=== PATIENT | male | born 1995 | race Caucasian/White ===

== ENCOUNTER 2017-09-04 13:05 | Emergency (ER) | payer SELFPAY ==
[2017-09-04 13:16] VITALS: BP 136/53
--- NOTE | 2017-09-04 13:33 | UC ---
Complaint Male HPI - HPI Summary HPI Summary: pt states last week he had some "stinging with urination". he drank cranberry juice and it resolved. today, he has recurrent pain and some red blood in his urine. he denies any injury, f/v/d, hx std, injury/testicle pain. he has had the same female partner x 2 years. he denies risk/concern for std's. - History of Current Complaint Stated Complaint: URINARY Time Seen by Provider: 09/04/17 13:13 Hx Obtained From: Patient Onset/Duration: Gradual Onset Pain Intensity: 4 Aggravating Factor(s): Nothing Associated Signs And Symptoms: Positive: Hematuria, Dysuria. Negative: Back Pain, Fever, Rectal Pain, Penile Swelling, Penile Discharge - Risk Factors Testicular Torsion: Negative - Allergies/Home Medications Allergies/Adverse Reactions: Allergies Allergy/AdvReac Type Severity Reaction Status Date / Time No Known Allergies Allergy Verified 09/04/17 13:17 PMH/Surg Hx/FS Hx/Imm Hx Previously Healthy: Yes - Surgical History Surgical History: None - Family History Known Family History: Positive: None - Social History Occupation: Employed Full-time Lives: With Family Alcohol Use: None Substance Use Type: None Smoking Status (MU): Never Smoked Tobacco Household Exposure Type: Cigarettes - Immunization History Vaccination Up to Date: Yes Review of Systems Constitutional: Negative Skin: Negative Eyes: Negative ENT: Negative Respiratory: Negative Cardiovascular: Negative Gastrointestinal: Negative Genitourinary: Dysuria, Hematuria, Frequency, Urgency Motor: Negative Neurovascular: Negative Musculoskeletal: Negative Neurological: Negative Psychological: Negative Is Patient Immunocompromised?: No All Other Systems Reviewed And Are Negative: Yes Physical Exam Triage Information Reviewed: Yes Appearance: Well-Appearing Vital Signs: Initial Vital Signs Temp 99.3 F 09/04/17 13:13 Pulse 115 09/04/17 13:13 Resp 15 09/04/17 13:13 BP 136/53 09/04/17 13:13 Pulse Ox 100 09/04/17 13:13 Vital Signs Reviewed: Yes Eyes: Positive: Conjunctiva Clear ENT: Positive: Pharynx normal, TMs normal. Negative: Nasal congestion, Nasal drainage Neck: Positive: Supple, Nontender, No Lymphadenopathy Respiratory: Positive: Lungs clear, Normal breath sounds Cardiovascular: Positive: RRR, No Murmur. Negative: Tachycardia Abdomen Description: Positive: Nontender, No Organomegaly, Soft. Negative: CVA Tenderness (R), CVA Tenderness (L), Distended, Guarding Bowel Sounds: Positive: Present Male Genital Exam: Positive: Normal Genitalia, No Hernia. Negative: Bleeding, Epididymal Tenderness, Erythema, Lesions, Testicular Tenderness (R), Testicular Tenderness (L), Urethral Discharge Musculoskeletal: Positive: ROM Intact Neurological: Positive: Alert Psychological: Positive: Age Appropriate Behavior Skin Exam: Normal Diagnostics - Laboratory Diagnostic Studies Completed/Ordered: U/A= 3+ BLOOD with culture pending. Urine GC/Chlamydia = pending. pt declined HIV/syphilis testing. Complaint Male Course/Dx - Course Course Of Treatment: non toxic. no acute abdomen. no flank pain to suggest renal colic. no concern for testicular pathology. hx suggests uti thus will tx presumptively with culture pending. case d/w Dr Carmen, we agreed on tx plan. pt advised go to ER for changes or worsening. need for close f/u and rcheck was stressed. list of local providers and physician referral liason number given as well to assist with f/u. - Differential Dx/Diagnosis Provider Diagnoses: dysuria. hematuria. Discharge - Sign-Out/Discharge Documenting (check all that apply): Patient Departure - Discharge Plan Condition: Stable Disposition: HOME Prescriptions: Cephalexin CAP* [Keflex CAP*] 500 mg PO TID #21 cap Patient Education Materials: Hematuria (ED), Dysuria (ED) Referrals: [facility]FERR[facility] [Outside] - 7 Days No Primary Care Phys,NOPCP [Primary Care Provider] - Additional Instructions: FOLLOW UP WITH A LOCAL PROVIDER IN 7 DAYS FOR A RECHECK. LIST GIVEN ALONG WITH [facility] REFERR[facility] WHOM YOU SHOULD CALL WEDNESDAY AM. THEY WILL ASSIST YOU WITH A FOLLOW UP APPOINTMENT WELL. - Billing Disposition and Condition Condition: STABLE Disposition: Home
== END 2017-09-04 14:04 | disposition home or self-care (01) ==
LOC: UCCORT 13:05
DX: R30.0 Dysuria (principal); R31.9 Hematuria, unspecified
CPT/HCPCS: 81003; 87086; 87491; 87591; 99212; G0463

== ENCOUNTER 2017-09-17 16:30 | Emergency (ER) | payer SELFPAY ==
[2017-09-17 17:15] VITALS: BP 121/50
--- NOTE | 2017-09-17 17:41 | UC ---
Complaint Male HPI - HPI Summary HPI Summary: Pt presents with c/o of sudden onset of gamaliel, gross, hematuria, pelvic pain, occasional penile discharge that began 1 week ago. Pt attempted to make appointment with PCP and was not able to get an appointment as recommended at last UC visit. Pt denies STD risk, is sexually active but denies risk for STD' s. STate today he had gamaliel gross hematuria and large blood clots in urine. Pt denies recent injury, trauma or vigorous physical activity. Pt reports that he took cephalexin as directed from last visit and stated hematuria improved. - History of Current Complaint Chief Complaint: UCGU Stated Complaint: RECHECK - URINARY Time Seen by Provider: 09/17/17 17:18 Hx Obtained From: Patient Onset/Duration: Sudden Onset, Lasting Days - 10 Timing: Intermittent Severity Initially: Mild Severity Currently: Moderate Pain Intensity: 0 Location: Suprapubic Character: Sharp, Burning, Colicy Aggravating Factor(s): Voiding Alleviating Factor(s): Nothing Associated Signs And Symptoms: Positive: Hematuria, Penile Discharge - Risk Factors Testicular Torsion: Negative - Allergies/Home Medications Allergies/Adverse Reactions: Allergies Allergy/AdvReac Type Severity Reaction Status Date / Time No Known Allergies Allergy Verified 09/17/17 17:15 PMH/Surg Hx/FS Hx/Imm Hx Previously Healthy: Yes - Surgical History Surgical History: None - Family History Known Family History: Positive: Cardiac Disease - Social History Occupation: Employed Part-time Alcohol Use: None Substance Use Type: None Smoking Status (MU): Never Smoked Tobacco Have You Smoked in the Last Year: No Household Exposure Type: Cigarettes - Immunization History Vaccination Up to Date: Yes Review of Systems Constitutional: Negative Skin: Negative Eyes: Negative ENT: Negative Respiratory: Negative Cardiovascular: Negative Gastrointestinal: Abdominal Pain Genitourinary: Dysuria, Hematuria, Vaginal/Penile Discharge Motor: Negative Neurovascular: Negative Musculoskeletal: Negative Neurological: Negative Psychological: Negative Is Patient Immunocompromised?: No All Other Systems Reviewed And Are Negative: Yes Physical Exam Triage Information Reviewed: Yes Appearance: Well-Appearing Vital Signs: Initial Vital Signs Temp 99.4 F 09/17/17 17:09 Pulse 92 09/17/17 17:09 Resp 16 09/17/17 17:09 BP 121/50 09/17/17 17:09 Pulse Ox 99 09/17/17 17:09 Vital Signs Reviewed: Yes Eye Exam: Normal ENT Exam: Normal Dental Exam: Normal Neck exam: Normal Respiratory Exam: Normal Cardiovascular Exam: Normal Abdominal Exam: Normal Abdomen Description: Positive: Nontender, No Organomegaly, Soft Musculoskeletal Exam: Normal Neurological Exam: Normal Psychological Exam: Normal Skin Exam: Normal Complaint Male Course/Dx - Differential Dx/Diagnosis Differential Diagnosis/HQI/PQRI: Urinary Tract Infection, Other - STD Provider Diagnoses: hematuria. urethritis Discharge - Sign-Out/Discharge Documenting (check all that apply): Patient Departure - Discharge Plan Condition: Stable Disposition: HOME Prescriptions: ceFIXime [Suprax] 400 mg PO ONCE #1 capsule DOXYcycline CAP(*) [DOXYcycline 100MG CAP(*)] 100 mg PO Q12H #14 cap Phenazopyridine TAB* [Pyridium 100 mg TAB*] 100 mg PO Q8H PRN #9 tab PRN Reason: Pain Patient Education Materials: Nonspecific Urethritis in Men (ED), Hematuria (ED) Referrals: No Primary Care Phys,NOPCP [Primary Care Provider] - Ramirez Mckay MD [Medical Doctor] - As Soon As Possible Norman Lopez MD [Medical Doctor] - As Soon As Possible - Billing Disposition and Condition Condition: STABLE Disposition: Home
== END 2017-09-17 17:54 | disposition home or self-care (01) ==
LOC: UCCORT 16:30
DX: R31.0 Gross hematuria (principal); N34.2 Other urethritis
CPT/HCPCS: 81003; 87491; 87591; 99212; G0463